=== PATIENT | male | born 1955 | race Caucasian/White ===

== ENCOUNTER 2025-07-31 15:20 | Emergency (ER) | payer OTHER ==
[~2025-07-31] VITALS: Wt 86.2 kg
[2025-07-31] MEDS ORDERED: CALCIUM GLUCONATE 1 GM/10 ML VIAL ONE (16:00)
== END 2025-07-31 18:40 ==
LOC: ED 15:32
DX: I46.9 Cardiac arrest, cause unspecified (principal); I50.9 Heart failure, unspecified